=== PATIENT | male | born 1985 | race African-American/Black ===

== ENCOUNTER 2024-07-18 00:05 | Emergency (ER) | payer SELFPAY ==
[~2024-07-18] VITALS: Ht 172.7 cm; Wt 73.0 kg
[2024-07-18 00:20] VITALS: O2SAT 100
[2024-07-18] MEDS: KETOROLAC 15MG/ML VIAL IM ONE (00:36)
[2024-07-18] MEDS ORDERED: NAPR-1176 MT (01:23)
[2024-07-18] MEDS ORDERED: LIDO700A15 TP (01:23)
[2024-07-18 02:23] VITALS: BP 113/6; PULSE 80; RESP 16; TEMP 36.55848; O2SAT 100
== END 2024-07-18 02:28 | disposition home or self-care (01) ==
LOC: ER 00:05
DX: S93.402A Sprain of unspecified ligament of left ankle, initial encounter (principal); X58.XXXA Exposure to other specified factors, initial encounter; Y93.67 Activity, basketball; Y92.89 Other specified places as the place of occurrence of the external cause; Y99.8 Other external cause status
CPT/HCPCS: 73610; 96372; 99283; J1885; Z7610